=== PATIENT | female | born 1965 | race Caucasian/White ===

== ENCOUNTER 2020-10-08 20:33 | Emergency (ER) | payer BC ==
[2020-10-08] MEDS ORDERED: SODIUM CHLORIDE 1,000 ML ONE (20:57)
[2020-10-08] MEDS ORDERED: KETOROLAC TROMETHAMINE 30 MG/1 ML VIAL IVPUSH ONE (20:57)
[2020-10-08] MEDS ORDERED: KETOROLAC TROMETHAMINE 30 MG/1 ML VIAL ONE (21:16)
[2020-10-08 21:20] LABS: BASO % 0.9 % (0-2.0); HEMATOCRIT 38.8 % (32.4-45.2); LYMPH % 17.5 % (8-40); MCH 29.9 pg (25.7-33.7); MCHC 33.4 g/dl (32.0-36.0); MEAN CELL VOLUME 89.4 fl (80-96); MEAN PLT VOLUME 7.7 fl (7.5-11.1); MONO % 2.5 % (3.8-10.2); NEUT % 78.1 % (42.8-82.8); PLATELET COUNT 311 10^3/uL (134-434); RBC 4.34 M/mm3 (3.60-5.2); RDW 12.9 % (11.6-15.6); WHITE BLOOD COUNT 10.2 K/mm3 (4.0-10.8)
[2020-10-08 21:24] VITALS: BP 136/88; PULSE 98; TEMP 98.8; BMI 26.1
[2020-10-08 21:40] LABS: ALBUMIN 4.2 g/dl (3.4-5.0); BILIRUBIN,TOTAL 0.5 mg/dl (0.2-1); CALCIUM 8.8 mg/dl (8.5-10); CREATININE 0.6 mg/dl (0.55-1.3); TOT PROT 7.3 g/dl (6.4-8.2)
[2020-10-08 21:42] LABS: EPITHELIAL CELLS MODERATE /hpf
== END 2020-10-08 22:47 | disposition home or self-care (01) ==
LOC: FER 20:33
PROC: 3E0333Z Introduction of Anti-inflammatory into Peripheral Vein, Percutaneous Approach (ICD-10-PCS; principal; 2020-10-08)
DX: R10.9 Unspecified abdominal pain (principal)
CPT/HCPCS: 36415; 74176-TC; 80053; 81003; 81015; 85025; 87086; 99284-25